=== PATIENT | male | born 1960 | race Two or more races ===

== ENCOUNTER 2017-03-16 13:16 | Emergency (ER) | payer MEDICAID ==
[~2017-03-16] VITALS: Ht 167.6 cm; Wt 90.7 kg
[~2017-03-16 13:16] MED LIST: AMOX500C2 PO; ASPI81CH43 PO; METR500T14 PO; OMEP20CA74 PO
[2017-03-16 14:05] LABS: Basophils # (auto) 0 uL; Basophils % (auto) 0.7 % (0.0-2.0); CONDITION Y; Eosinophils # (auto) 0.4 uL; Eosinophils % (auto) 7.3 % (0.0-7.0); Hematocrit 43.4 % (41.0-53.0); Lymphocytes # (auto) 1.2 uL; Mean Corpuscular Hemoglobin 32.6 pg (28.0-32.0); Mean Corpuscular Hgb Conc. 34.6 g/dL (32.0-36.0); Mean Corpuscular Volume 94.3 fL (80.0-100.0); Mean Platelet Volume 8.7 fL (7.4-10.4); Monocytes # (auto) 0.4 uL; Neutrophils # (auto) 3.8 uL; Platelet Count (auto) 235 10^3/uL (140-450); Red Cell Distribution Width 13.1 % (11.6-16.0); White Blood Cell 5.8 10^3/uL (4.4-10.8)
[2017-03-16 14:21] LABS: Albumin 3.6 g/dL (3.4-5.0); Anion Gap 8 (5-15); Aspartate Aminotransferase 16 U/L (15-37); BUN/Creatinine Ratio 17.4; Blood Urea Nitrogen 16 mg/dL (7-18); Calcium 8.3 mg/dL (8.5-10.1); Carbon Dioxide 26 mmol/L (21-32); Chloride 110 mmol/L (98-107); GFR African American 109 mL/min; GFR Non-African American 90 mL/min; Glucose 95 mg/dL (74-106); Magnesium 2.6 mg/dL (1.6-2.6); Potassium 3.9 mmol/L (3.5-5.1); Sodium 144 mmol/L (136-145)
[2017-03-16 14:26] LABS: Alkaline Phosphatase 59 U/L (45-117); Bilirubin, Total 0.4 mg/dL (0.2-1.0); Total Protein 6.9 g/dL (6.4-8.2)
[2017-03-16] MEDS ORDERED: SODIUM CHLORIDE 0.9% 1,000 ML IV ONE (15:56)
[2017-03-16] MEDS ORDERED: METOCLOPRAMIDE HCL 5MG/ml INJ 2ml VIAL IV ONE (16:00)
[2017-03-16] MEDS ORDERED: PANTOPRAZOLE 40 MG TAB PO ONE (16:00)
[2017-03-16 17:01] VITALS: BP 134/83
== END 2017-03-16 18:10 | disposition home or self-care (01) ==
LOC: ER 13:16
DX: R07.89 Other chest pain (principal); K21.9 Gastro-esophageal reflux disease without esophagitis; I10 Essential (primary) hypertension; E78.5 Hyperlipidemia, unspecified; Z90.49 Acquired absence of other specified parts of digestive tract; Z79.82 Long term (current) use of aspirin
CPT/HCPCS: 36415; 71010; 80053; 83735; 84443; 84484; 85025; 93005; 94761; 96361; 96374; 99285; J2765; J7030

== ENCOUNTER 2023-09-27 21:39 | Inpatient (IN) | payer OTHER, MEDICAID ==
[~2023-09-27] VITALS: Ht 172.7 cm; Wt 99.4 kg
[~2023-09-27 21:39] MED LIST changes: -AMOX500C2 PO; +CALC500C3 PO; -METR500T14 PO; -OMEP20CA74 PO; +PANT40TA2 PO
[2023-09-27 21:58] LABS: Basophils # (auto) 0.1 10 ^3/uL (0-0.2); Basophils % (auto) 1.1 % (0.0-2.0); Eosinophils # (auto) 0.4 10 ^3/uL (0-0.8); Eosinophils % (auto) 4.9 % (0.0-7.0); Hemoglobin 15.8 g/dL (13.5-17.5); Lymphocytes # (auto) 2.5 10 ^3/uL (0.4-5.4); Lymphocytes % (auto) 31.7 % (10.0-50.0); Mean Corpuscular Hemoglobin 31.6 pg (28.0-32.0); Mean Corpuscular Hgb Conc. 33.7 g/dL (32.0-36.0); Mean Corpuscular Volume 93.7 fL (80.0-100.0); Monocytes # (auto) 0.7 10 ^3/uL (0-1.3); Monocytes % (auto) 8.3 % (0.0-12.0); Neutrophils # (auto) 4.3 10 ^3/uL (1.6-8.6); Nucleated Red Blood Cells % 0.2 %; Red Blood Cells 5.01 10^6/uL (4.5-5.90); Red Cell Distribution Width 12.8 % (11.8-14.3); White Blood Cell 7.9 10^3/uL (4.4-10.8)
[2023-09-27 22:14] LABS: Alanine Aminotransferase 32 U/L (7-40); Albumin 4.5 g/dL (3.2-4.8); Alkaline Phosphatase 74 U/L (46-116); Anion Gap 5 (5-15); Aspartate Aminotransferase 21 U/L (13-40); BUN/Creatinine Ratio 8.6 (10.0-20.0); Blood Urea Nitrogen 8 mg/dL (9-23); Calcium 9.3 mg/dL (8.7-10.4); Carbon Dioxide 31 mmol/L (20-30); Chloride 106 mmol/L (98-107); Glucose 101 mg/dL (74-106); Magnesium 2.2 mg/dL (1.6-2.6); Potassium 4.2 mmol/L (3.5-5.1); Sodium 142 mmol/L (136-145)
[2023-09-27 22:15] LABS: Bilirubin, Total 0.5 mg/dL (0.2-1.0); Total Protein 7.7 g/dL (5.7-8.2)
[2023-09-27 22:38] LABS: Urine Bacteria NONE SEEN /hpf (None Seen); Urine Blood Negative /uL (Negative); Urine Clarity Clear (Clear); Urine Color Yellow (Yellow); Urine Protein, UAD Negative (Negative); Urine Specific Gravity 1.013 (1.001-1.035); Urine Urobilinogen Normal (Negative); Urine WBC <1 /hpf (0 - 3); Urine pH 5.5 (5.0-8.0)
[2023-09-27 23:15] LABS: INR 0.97 (0.9-1.15); Partial Thromboplastin Time 29.2 SEC (24.5-34.5); Prothrombin Time 10.2 sec (9.3-11.8)
[2023-09-28] MEDS: ONDANSETRON HCL 4 MG/2 ML VIAL IV ONE (03:21)
[2023-09-28] MEDS: MORPHINE SULFATE 4 MG/ML SYR/VIAL IV ONE (03:21)
[2023-09-28] MEDS ORDERED: DOCUSATE SOD 100 MG CAP PO PRN (03:30)
[2023-09-28] MEDS ORDERED: ACETAMINOPHEN 325 MG TAB PO PRN (03:30)
[2023-09-28 05:45] LABS: Basophils # (auto) 0 10 ^3/uL (0-0.2); Basophils % (auto) 0.7 % (0.0-2.0); Eosinophils # (auto) 0.1 10 ^3/uL (0-0.8); Eosinophils % (auto) 1.5 % (0.0-7.0); Hemoglobin 15.5 g/dL (13.5-17.5); Lymphocytes # (auto) 1.2 10 ^3/uL (0.4-5.4); Lymphocytes % (auto) 20.4 % (10.0-50.0); Mean Corpuscular Hemoglobin 31.5 pg (28.0-32.0); Mean Corpuscular Hgb Conc. 33.7 g/dL (32.0-36.0); Mean Corpuscular Volume 93.3 fL (80.0-100.0); Monocytes # (auto) 0.3 10 ^3/uL (0-1.3); Monocytes % (auto) 5.2 % (0.0-12.0); Neutrophils # (auto) 4.3 10 ^3/uL (1.6-8.6); Neutrophils % (auto) 72.2 % (37.0-80.0); Nucleated Red Blood Cells % 0.3 %; Red Blood Cells 4.93 10^6/uL (4.5-5.90); Red Cell Distribution Width 13.2 % (11.8-14.3); White Blood Cell 5.9 10^3/uL (4.4-10.8)
[2023-09-28 05:54] LABS: Alanine Aminotransferase 32 U/L (7-40); Alkaline Phosphatase 69 U/L (46-116); Anion Gap 4 (5-15); BUN/Creatinine Ratio 9.9 (10.0-20.0); Blood Urea Nitrogen 9 mg/dL (9-23); Calcium 9.4 mg/dL (8.7-10.4); Carbon Dioxide 29 mmol/L (20-30); Chloride 108 mmol/L (98-107); Glucose 112 mg/dL (74-106); Potassium 5.2 mmol/L (3.5-5.1); Sodium 141 mmol/L (136-145)
[2023-09-28 05:55] LABS: Albumin 4.4 g/dL (3.2-4.8)
[2023-09-28 05:56] LABS: Aspartate Aminotransferase 20 U/L (13-40); Bilirubin, Total 0.7 mg/dL (0.2-1.0); Total Protein 7.1 g/dL (5.7-8.2)
[2023-09-28] MEDS: SODIUM CHLOR 0.9% PF (SALINE LOCK) 10ML VIAL/SYR IV SCH (06:17)
[2023-09-28 08:00] VITALS: PULSE 73; RESP 14; O2SAT 95
[2023-09-28] MEDS: NITROGLYCERIN 0.4 MG SL TAB SL PRN (08:04)
[2023-09-28] MEDS: MORPHINE SULFATE INJ 2 MG/ml SYRG IV PRN (09:28)
[2023-09-28] MEDS: ONDANSETRON HCL 4 MG/2 ML VIAL IV PRN (09:29)
[2023-09-28] MEDS: ASPirin 81 mg TAB PO SCH (10:22)
[2023-09-28] MEDS: FAMOTIDINE (10MG/ML) 2ML VL IV SCH (10:22)
[2023-09-28 12:20] LABS: Urine Bacteria NONE SEEN /hpf (None Seen); Urine Blood Negative /uL (Negative); Urine Clarity Clear (Clear); Urine Color Colorless (Yellow); Urine Protein, UAD Negative (Negative); Urine Specific Gravity 1.016 (1.001-1.035); Urine Urobilinogen Normal (Negative); Urine WBC <1 /hpf (0 - 3)
[2023-09-28] MEDS: ENOXAPARIN SOD 100 MG/1 ML SYRINGE SC ONE (12:59)
[2023-09-28] MEDS: NITROGLYCERIN 0.2MG/HR TOPICAL PATCH TD ONE (12:59)
[2023-09-28] MEDS: SODIUM CHLORIDE 0.9% 1,000 ML IV SCH (12:59)
[2023-09-28 13:52] LABS: Amphetamine Screen, Urine Neg (NEGATIVE); Barbiturate Scree,Urine Neg (NEGATIVE); Benzodiazephine Screen, Urine Neg (NEGATIVE); Cannabinoid Screen, Urine Neg (NEGATIVE); Cocaine Screen, Urine Neg (NEGATIVE); Opiate Scree,Urine Pos (NEGATIVE); Phencyclidine Screen, Urine Neg (NEGATIVE)
[2023-09-28 14:29] LABS: Triglycerides 105 mg/dL (< 150)
[2023-09-28 14:30] LABS: LDL Cholesterol 159 mg/dL (< 100)
[2023-09-28 14:31] LABS: Cholesterol 219 mg/dL (< 200); HDL Cholesterol 52 mg/dL (40-59)
[2023-09-28] MEDS: HYDROcodone-ACET 5/325MG TAB PO ONE (15:17)
[2023-09-28 20:00] VITALS: PULSE 84
[2023-09-28] MEDS: HYDROcodone-ACET 5/325MG TAB PO PRN (21:29)
[2023-09-28] MEDS: ATORVASTATIN 20 MG TAB PO SCH (21:29)
[2023-09-28] MEDS: ENOXAPARIN SOD 100 MG/1 ML SYRINGE SC SCH (21:30)
[2023-09-28 22:56] VITALS: BP 116/64; PULSE 71; RESP 18; TEMP 97.5; O2SAT 98
[2023-09-29] VITALS (9 sets, daily range): BP systolic 96–137; BP diastolic 58–91; PULSE 61–86; RESP 15–20; TEMP 96.7–98.4; O2SAT 93–97
[2023-09-29 05:44] LABS: Basophils # (auto) 0 10 ^3/uL (0-0.2); Basophils % (auto) 0.6 % (0.0-2.0); Eosinophils # (auto) 0.2 10 ^3/uL (0-0.8); Eosinophils % (auto) 3.7 % (0.0-7.0); Hematocrit 41.4 % (41.0-53.0); Hemoglobin 14.3 g/dL (13.5-17.5); Lymphocytes # (auto) 1.9 10 ^3/uL (0.4-5.4); Lymphocytes % (auto) 29.1 % (10.0-50.0); Mean Corpuscular Hemoglobin 32.2 pg (28.0-32.0); Mean Corpuscular Hgb Conc. 34.5 g/dL (32.0-36.0); Mean Corpuscular Volume 93.3 fL (80.0-100.0); Monocytes # (auto) 0.6 10 ^3/uL (0-1.3); Monocytes % (auto) 9.3 % (0.0-12.0); Neutrophils # (auto) 3.8 10 ^3/uL (1.6-8.6); Neutrophils % (auto) 57.3 % (37.0-80.0); Red Blood Cells 4.44 10^6/uL (4.5-5.90); White Blood Cell 6.6 10^3/uL (4.4-10.8)
[2023-09-29 06:06] LABS: Alanine Aminotransferase 44 U/L (7-40); Albumin 3.8 g/dL (3.2-4.8); Alkaline Phosphatase 58 U/L (46-116); Anion Gap 3 (5-15); Aspartate Aminotransferase 28 U/L (13-40); BUN/Creatinine Ratio 10.6 (10.0-20.0); Bilirubin, Total 0.9 mg/dL (0.2-1.0); Blood Urea Nitrogen 9 mg/dL (9-23); Calcium 8.8 mg/dL (8.5-10.1); Carbon Dioxide 31 mmol/L (20-30); Chloride 105 mmol/L (98-107); Glucose 96 mg/dL (74-106); Sodium 139 mmol/L (136-145); Total Protein 6.2 g/dL (5.7-8.2)
[2023-09-29] MEDS: PANTOPRAZOLE 40 MG TAB PO SCH (09:47)
[2023-09-29] MEDS: NITROGLYCERIN 0.2MG/HR TOPICAL PATCH TD SCH (10:00)
[2023-09-29] MEDS: ADENOSINE 82 MG in GIVE UN-DILUTED 0 ML IV STA (10:50)
[2023-09-29] MEDS: ATORVASTATIN 20 MG TAB PO SCH (21:03)
[2023-09-30] MEDS ORDERED: OFL50TS (04:01)
[2023-09-30] MEDS ORDERED: ATOR20TA50 PO (04:01)
[2023-09-30] MEDS ORDERED: DEXT1SYP6 PO (04:01)
[2023-09-30 05:09] VITALS: BP 128/74; PULSE 74; RESP 18; TEMP 97.9; O2SAT 93
[2023-09-30 08:30] VITALS: PULSE 68; PULSE 77; RESP 16
[2023-09-30 09:33] VITALS: BP 123/60; PULSE 67; RESP 18; TEMP 98.6; O2SAT 95
[2023-09-30] MEDS ORDERED: ATOR80TA PO (12:37)
[2023-09-30] MEDS ORDERED: ASPI1TAB20 PO (12:37)
== END 2023-09-30 13:48 | disposition home or self-care (01) | DRG 282 ==
LOC: ER 21:39 → TELE-WESTW 09-28 03:29 → TELE 09-28 03:29 → ER 09-28 03:29 → TELE-WESTW 09-28 19:42
PROVIDERS: ADMIT Nurse Practitioner Family; ATTEND Family Medicine
DX: I21.4 Non-ST elevation (NSTEMI) myocardial infarction (principal); E78.5 Hyperlipidemia, unspecified; E66.9 Obesity, unspecified; I45.10 Unspecified right bundle-branch block; K21.9 Gastro-esophageal reflux disease without esophagitis; M41.9 Scoliosis, unspecified; E87.5 Hyperkalemia; E78.00 Pure hypercholesterolemia, unspecified; Z79.82 Long term (current) use of aspirin; Z79.899 Other long term (current) drug therapy; Z90.49 Acquired absence of other specified parts of digestive tract; Z68.33 Body mass index [BMI] 33.0-33.9, adult; M19.90 Unspecified osteoarthritis, unspecified site
CPT/HCPCS: 36415; 78452; 80053; 80061; 80307; 81001; 83036; 83735; 83880; 84443; 84484; 85025; 85379; 85610; 85730; 93005; 93017; 93306; 96374; 96375; 96376; G0378; J0153; J2405; J3490

== ENCOUNTER → 2025-04-01 | Day surgery (SDC) | payer OTHER, MEDICAID ==
[2025-03-28 14:02] LABS: Urine Protein, UAD Negative (Negative)
[2025-03-28 14:03] LABS: Hematocrit 50.7 % (41.0-53.0); Hemoglobin 17.6 g/dL (13.5-17.5); Mean Corpuscular Hemoglobin 32.2 pg (28.0-32.0); Mean Corpuscular Volume 93.0 fL (80.0-100.0); Nucleated Red Blood Cells % 0.2 %
[2025-03-28 14:17] LABS: INR 0.98 (0.9-1.15); Partial Thromboplastin Time 28.9 SEC (24.5-34.5); Prothrombin Time 10.4 sec (9.3-11.8)
[2025-03-28 15:25] LABS: Alanine Aminotransferase 27 U/L (7-40); Alkaline Phosphatase 69 U/L (46-116); Anion Gap 8 (5-15); BUN/Creatinine Ratio 10.2 (10.0-20.0); Bilirubin, Total 0.6 mg/dL (0.2-1.0); Blood Urea Nitrogen 9 mg/dL (9-23); Calcium 9.7 mg/dL (8.7-10.4); Chloride 99 mmol/L (98-107); Glucose 84 mg/dL (74-106); Potassium 4.0 mmol/L (3.5-5.1); Sodium 140 mmol/L (136-145); Total Protein 7.6 g/dL (5.7-8.2)
[2025-03-28 15:27] LABS: Albumin 4.9 g/dL (3.2-4.8); Carbon Dioxide 33 mmol/L (20-31)
[~2025-04-01] VITALS: Ht 160 cm; Wt 98.9 kg
[~2025-04-01] MED LIST changes: -ASPI81CH43 PO; -CALC500C3 PO; +GLYCOPYRROLATE 0.2 MG/ML 1ML VIAL ONE; +KETAMINE 50mg/ML 1ml syringe IV ONE; +LIDOCAINE 2% (LOCAL ANESTH.) PF 5ml SDV ONE; +MIDAZOLAM HCL 2MG/2ML 2ml VIAL (1mg/ml) ONE; +ONDANSETRON HCL 4 MG/2 ML VIAL ONE; -PANT40TA2 PO; +PROPOFOL 10 MG/ML 20 ML IV ONE; +fentaNYL CITRATE 100 MCG/2 ML VL ONE
[2025-04-01 11:19] VITALS: PULSE 100; RESP 19; TEMP 97.7
[2025-04-01 11:45] VITALS: BP 124/86; PULSE 98; RESP 14; O2SAT 95
--- NOTE | 2025-04-01 12:19 | DVHOP2 ---
Operative Report DATE OF OPERATION: 04/01/25 PROCEDURE: Upper Endoscopy with biopsy. PREOPERATIVE INDICATION: The patient is a 64 -year-old male undergoing endoscopy for heme-positive stools and GERD POSTOPERATIVE DIAGNOSES: 1. 2 cm sliding-type hiatal hernia with slightly irregular squamocolumnar junction and grade a erosive esophagitis 2. Mild gastritis involving the antrum and body of the stomach with some flecks of bleeding PROCEDURE PERFORMED BY: Kris Ray GI NURSE: Mary SCOPE: Olympus videoendoscope. ASA CLASS: 3 PREOPERATIVE MEDICATIONS: Dr. Tyrese Lyon PROCEDURE IN DETAIL: After obtaining an informed consent, the patient was placed on left lateral decubitus position. The patient was then sedated with the above medications. A bite block was placed between his teeth. The endoscope was then passed through the oropharynx, into the esophagus, and through the stomach and pylorus up to the second and third part of the duodenum. The endoscope was then withdrawn. The 2nd and 3rd part of the duodenum and the duodenal bulb were normal. Duodenal biopsies were obtained The pre-pyloric area antrum and body of the stomach showed mild gastritis with some flecks of old blood. Gastric biopsies were obtained On retroflexion the fundus cardia and angularis were normal. The endoscope was then withdrawn into distal esophagus Patient had a 2 cm sliding-type hiatal hernia with irregular squamocolumnar junction and grade a erosive esophagitis at the GE junction from which biopsies were obtained The remaining distal and proximal esophagus and oropharynx were unremarkable The patient tolerated the procedure well without difficulty. COMPLICATIONS : None SPECIMENS: Duodenal biopsies Gastric biopsies GE junction biopsies DISPOSITION: Stable D/C to home PLAN: 1. Await for biopsy result 2. Will place pt on Protonix 40 mg p.o. daily 3. Resume GI soft diet advance as tolerated 4. Avoid aspirin and NSAIDs , smoking and alcohol 5. Outpatient follow up with me in 4-6 weeks to review results and discuss further management KRIS RAY MD Apr 01, 2025 12:19
--- NOTE | 2025-04-01 12:23 | DVHOP2 ---
Operative Report DATE OF OPERATION: 04/01/25 PROCEDURE: Colonoscopy with hot snare polypectomy. PREOPERATIVE INDICATION: The patient is a 64 -year-old male undergoing colonoscopy for Hemoccult-positive stools POSTOPERATIVE DIAGNOSES: 1. Patient had a 1-1.5 cm rectal polyp that was seen and removed via hot snare polypectomy and the specimens were retrieved 2. There was a 3 mm benign-appearing sigmoid polyp that was seen and removed by cold biopsy forceps 3. There were two 1-2 mm benign-appearing descending colon polyps that were seen and removed by cold biopsy forceps 4. 1+ internal hemorrhoids otherwise normal examination up to the cecum and terminal ileum PROCEDURE PERFORMED BY: Kris Ray M.D. SCOPE: Olympus videocolonoscope. ASA CLASS: 3 PREOPERATIVE MEDICATIONS: Dr. Tyrese Lyon PROCEDURE IN DETAIL: After obtaining an informed consent, the patient was placed on left lateral decubitus position. He was then sedated with the above medications. A rectal examination was performed that was normal. The colonoscope was then passed through the anus into the rectosigmoid and through the descending, transverse, and ascending colon up to the cecum with visualization of the appendiceal orifice, base of the cecum and the ileocecal valve. The colonoscope was then withdrawn. The distal 3-5 cm of the terminal ileum were normal No masses or colitis were seen. There was no clear-cut diverticular disease. Patient did have to less than 5 mm benign-appearing descending colon polyps that were seen and removed by cold biopsy forceps There was a 2-3 mm benign-appearing sigmoid polyp that was seen and removed by cold biopsy forceps On retroflexion patient had a 1-1.5 cm polyp seen for 5 cm above the anal verge. This was removed by hot snare polypectomy and the specimens were retrieved Patient had 1+ internal hemorrhoids that were slightly engorged. The patient tolerated the procedure well without difficulty. WITHDRAWAL TIME: 12 minutes QUALITY OF THE PREP: [place]in Bowel Prep score: 9. COMPLICATIONS : None SPECIMENS: Descending colon polyps x2 Sigmoid polyp x1 Rectal polyp x1 DISPOSITION: Stable D/C to home PLAN: 1. Repeat colonoscopy base on biopsy result likely in 3-5 years 2. Resume GI soft diet advance as tolerated 3. Local anorectal hemorrhoidal care 4. Avoid aspirin NSAIDs blood thinners for five days 5. Outpatient follow up with me in 4-6 weeks to review results and discuss further management KRIS RAY MD Apr 01, 2025 12:23
== END | disposition home or self-care (01) ==
LOC: GI 08:14
PROVIDERS: ATTEND Internal Medicine Gastroenterology
DX: R19.5 Other fecal abnormalities (principal); K21.00 Gastro-esophageal reflux disease with esophagitis, without bleeding; D12.8 Benign neoplasm of rectum; D12.4 Benign neoplasm of descending colon; K64.0 First degree hemorrhoids; K44.9 Diaphragmatic hernia without obstruction or gangrene; Z86.0100 Personal history of colon polyps, unspecified; K29.50 Unspecified chronic gastritis without bleeding; I25.10 Atherosclerotic heart disease of native coronary artery without angina pectoris; Z90.49 Acquired absence of other specified parts of digestive tract
CPT/HCPCS: 36415; 43239; 45380; 45385; 80053; 81001; 85025; 85610; 85730; 88305; 88342; J2003; J2250; J2405; J2704; J3010; J7030

== ENCOUNTER 2025-07-20 16:38 | Inpatient (IN) | payer MEDICARE, MEDICAID ==
[~2025-07-20] VITALS: Ht 167.6 cm; Wt 98.5 kg
--- NOTE | 2025-07-20 16:53 | ECG ---
[facility] Test Date: 2025-07-20 Test Time: 16:43:44 Pat Name: GONSALO LORA Department: ER Room: 0288T Gender: M Firearms Instructor: SANGITA : 1960 Requested By: VANESSA BRENNER* Order Number: [id number] Reading MD: Helio Serrano Measurements Intervals [place] Rate: 95 P: 73 VA: 156 QRS: 62 QRSD: 141 T: 18 QT: 373 QTc: 469 Interpretive Statements Sinus rhythm Ventricular premature complex Right bundle branch block Electronically Signed On 07-21-2025 17:25:56 PST by Helio Serrano Please click the below link to view image of tracing.
--- NOTE | 2025-07-20 17:01 | ED.PDOC ---
HPI Comments HPI: Past Medical history: HTN, Thyroid, High Lipids Past Surgical history: Cholecystectomy, Hernia Repair Social History: Denies smoking, ETOH, and drug use. Allergies: NKDA NATASHA CP/SOB WITH EXERTION OR THREE DAYS. HPI: Poor Historian. 65-year-old male presents to emergency depart for evaluation of midsternal chest pain nonradiating for the last three days with the associated exertional shortness of breath. Denies any other acute symptoms. REVIEW OF SYSTEMS: CONSTITUTIONAL: Denies acute: fever, diaphoresis, chills, generalized weakness. HEAD: Denies acute: headache, photophobia Eyes: Denies acute: Double vision, vision loss, eye pain, eye discharge. EARS: Denies acute: tinnitus, hearing loss, ear discharge, ear pain, THROAT: Denies acute: sore throat, swelling, difficulty swallowing , pain with swallowing, change in voice. NECK: Denies acute: neck pain, neck swelling, stiff neck. HEART: Denies acute : palpitations, LUNGS: Denies acute: wheezing, cough, hemoptysis ABDOMEN: Denies acute: abdominal pain, Nausea, Vomiting, diarrhea, melena , hematemesis, hematochezia SKIN: Denies acute: rash, redness, lesions, itchiness. EXTREMITIES: Denies acute: calf pain, numbness, tingling, weakness, denies pain in extremity. Denies acute: Low back pain. Neuro: Denies acute: focal neurological deficit, motor or sensory focal neurological deficit, tremors, seizure like activity, confusion, dizziness, change in mental status, loss of bowel or bladder function, cauda equina like symptoms. : Denies acute: dysuria, hematuria, flank pain, increase in urinary frequency. PSYCH: Denies acute: hallucination, suicidal ideation, homicidal ideation. PHYSICAL EXAM: General: -----mild---acute distress, awake and alert. Head: normocephalic, atraumatic. No raccoon's eyes, no harding sign. Neck: supple, trachea is midline, no swelling. Throat: Normal phonation. Eyes:, no erythema, no purulent discharge, no proptosis, no icterus. Heart: regular rate, regular rhythm, no significant murmur appreciated. Lungs: no apparent respiratory distress, Able to speak in full sentences. No wheezing, no rhonchi, no crackles. No stridors Clear to auscultation bilaterally. Abdomen: non tender to palpation, non distended, soft, no guarding, no rebound, + bowel sounds. Neuro: Awake, Alert, oriented to name, self, situation, follows commands GCS=15. Speech is normal. Skin: no petechia, no purpura, no cyanosis, non-pale, not jaundice. Lower extremities: --no - Pitting edema no deformity, no focal swelling, no calf TTP. Makes eye contact. moves all four extremities. Face: no apparent facial droop. Ambulating in the ED independently. ED COURSE: DISCLAIMER: This medical document was created using an electronic medical record system with voice recognition software and computerized dictation system. Although this document has been carefully reviewed, there might still be some phonetic and typographical errors. Occasional wrong-word or "sound-alike" substitutions may have occurred due to the inherent limitations of voice recognition software. These areas are purely typographical due to imperfections of the software programs and do not reflect any compromise in the patient's medical care. Please read the chart carefully and recognize, using context, where these substitutions have occurred. Chief Complaint: Chest Pain Time Seen by MD: 17:00 Primary Care Provider: AMY Reviewed Notes: Nurses Notes, Medications, Allergies Allergies: Coded Allergies: NO KNOWN ALLERGIES (Unverified , 03/18/14) Information Source: Patient Mode of Arrival: Ambulatory EKG EKG : Pulse Rate (adult): 95 Richards: Normal Cardiac Rhythm: NSR Block: None Hypertrophy: None ST: Normal Was a procedure done? Was a procedure done?: No X-Ray, Labs, Meds, VS Vital Signs Date Time Temp Pulse Resp B/P (MAP) Pulse Ox O2 Delivery O2 Flow Rate FiO2 07/20/25 18:05 98.4 90 14 129/86 (100) 93 98.4 07/20/25 17:01 95 07/20/25 16:43 95 07/20/25 16:39 98.0 106 18 155/88 95 98.0 Lab Test 07/20/25 17:08 Range/Units White Blood Count 5.5 4.4-10.8 10^3/uL Red Blood Count 4.78 4.5-5.90 10^6/uL Hemoglobin 15.6 13.5-17.5 g/dL Hematocrit 44.7 41.0-53.0 % Mean Corpuscular Volume 93.4 80.0-100.0 fL Mean Corpuscular Hemoglobin 32.7 H 28.0-32.0 pg Mean Corpuscular Hemoglobin Concent 35.0 32.0-36.0 g/dL Red Cell Distribution Width 13.4 11.8-14.3 % Platelet Count 258 140-450 10^3/uL Mean Platelet Volume 7.8 6.9-10.8 fL Neutrophils (%) (Auto) 59.6 37.0-80.0 % Lymphocytes (%) (Auto) 28.1 10.0-50.0 % Monocytes (%) (Auto) 6.6 0.0-12.0 % Eosinophils (%) (Auto) 4.7 0.0-7.0 % Basophils (%) (Auto) 1.0 0.0-2.0 % Neutrophils # (Auto) 3.3 1.6-8.6 10 ^3/uL Lymphocytes # (Auto) 1.6 0.4-5.4 10 ^3/uL Monocytes # (Auto) 0.4 0-1.3 10 ^3/uL Eosinophils # (Auto) 0.3 0-0.8 10 ^3/uL Basophils # (Auto) 0.1 0-0.2 10 ^3/uL Nucleated Red Blood Cells 0.1 % D-Dimer, Quantitative 0.46 0.0-0.49 mg/L FEU Sodium Level 145 136-145 mmol/L Potassium Level 3.9 3.5-5.1 mmol/L Chloride Level 105 98-107 mmol/L Carbon Dioxide Level 31 20-31 mmol/L Anion Gap 9 5-15 Blood Urea Nitrogen 8 L 9-23 mg/dL Creatinine 0.87 0.700-1.30 mg/dL Glomerular Filtration Rate Calc 95 >90 mL/min BUN/Creatinine Ratio 9.2 L 10.0-20.0 Serum Glucose 130 H 74-106 mg/dL Calcium Level 9.3 8.7-10.4 mg/dL Total Bilirubin 0.5 0.2-1.0 mg/dL Aspartate Amino Transferase (AST) 24 13-40 U/L Alanine Aminotransferase (ALT) 34 7-40 U/L Alkaline Phosphatase 65 46-116 U/L Troponin I High Sensitivity 72 *H </=54 ng/L B-Type Natriuretic Peptide 25.80 0-100 pg/mL Total Protein 6.9 5.7-8.2 g/dL Albumin 4.2 3.2-4.8 g/dL Lipase 53 12-53 U/L Time of 1ST Reevaluation: 17:30 Reevaluation 1ST: Unchanged Patient Education/Counseling: Diagnosis, Treatment Family Education/Counseling: No Family Present SEPSIS Sepsis Screen Date sepsis recognized/suspect: Jul 20, 2025 Time Sepsis recognized/suspect: 1640 Recent Procedure: No On Antibiotic Therapy: No Respiratory Rate >20: No Heart Rate >90: Yes Temp<36 C (96.8 F) or >38.3 C: No SBP <90 or MAP <65 mmHG: No New Acute Mental Status Change: No Is the patient on CPAP, BIPAP,: No Physician Orders Troponin-I Hs (07/20/25 17:41) Troponin-I Hs (07/20/25 19:41) Chest Portable (07/20/25 17:29) Vital Signs Date Time Temp Pulse Resp B/P (MAP) Pulse Ox O2 Delivery O2 Flow Rate FiO2 07/20/25 18:05 98.4 90 14 129/86 (100) 93 98.4 07/20/25 17:01 95 07/20/25 16:43 95 07/20/25 16:39 98.0 106 18 155/88 95 98.0 Laboratory Tests Test 07/20/25 17:08 White Blood Count 5.5 10^3/uL (4.4-10.8) Departure 1 Departure Time of Disposition: 17:34 Impression: Primary Impression: Chest pain Additional Impressions: Shortness of breath Elevated troponin Disposition: ADMITTED INPATIENT Admit to: Tele Condition: Guarded Discharged With: Self Critical Care Note Critical Care Time?: No I personally scribed for LAY RODRIGUEZ DO ([email or web address]) on 07/20/25 at 17:01. Electronically submitted by Brayan Mendez ([email or web address]). LAY RODRIGUEZ DO Jul 20, 2025 17:01
[2025-07-20 17:42] LABS: Hematocrit 44.7 % (41.0-53.0); Hemoglobin 15.6 g/dL (13.5-17.5); Mean Corpuscular Hemoglobin 32.7 pg (28.0-32.0); Mean Corpuscular Volume 93.4 fL (80.0-100.0); Nucleated Red Blood Cells % 0.1 %
[2025-07-20 17:57] LABS: Alanine Aminotransferase 34 U/L (7-40); Albumin 4.2 g/dL (3.2-4.8); Alkaline Phosphatase 65 U/L (46-116); Anion Gap 9 (5-15); BUN/Creatinine Ratio 9.2 (10.0-20.0); Calcium 9.3 mg/dL (8.7-10.4); Chloride 105 mmol/L (98-107); Potassium 3.9 mmol/L (3.5-5.1); Total Protein 6.9 g/dL (5.7-8.2)
[2025-07-20 17:58] LABS: Bilirubin, Total 0.5 mg/dL (0.2-1.0); Blood Urea Nitrogen 8 mg/dL (9-23); Carbon Dioxide 31 mmol/L (20-31); Glucose 130 mg/dL (74-106); Sodium 145 mmol/L (136-145)
[2025-07-20] MEDS: ASPirin-EC 325mg tab PO ONE (18:20)
[2025-07-20] MEDS: NITROGLYCERIN 0.4 MG SL TAB SL ONE (18:21)
--- NOTE | 2025-07-20 19:06 | DVH ---
EXAM: XY CHEST PORTABLE HISTORY: cp/sob TECHNIQUE: 1 view of the chest COMPARISON: CT CT ANGIO CHEST CONTRAST on DOS: 09/28/23 FINDINGS/IMPRESSION: LUNGS: No pleural effusion, consolidation, or pneumothorax. MEDIASTINUM: Unremarkable. BONES: No acute osseous abnormality. OTHER: None.
[2025-07-20] MEDS ORDERED: MORPHINE SULFATE INJ 2 MG/ml SYRG IV PRN (20:00)
[2025-07-20] MEDS ORDERED: NITROGLYCERIN 0.4 MG SL TAB SL PRN (20:00)
[2025-07-20 20:32] VITALS: O2SAT 0
[2025-07-20] MEDS ORDERED: ONDANSETRON HCL 4 MG/2 ML VIAL IV PRN (21:45)
[2025-07-20] MEDS ORDERED: ACETAMINOPHEN 325 MG TAB PO PRN (21:45)
--- NOTE | 2025-07-20 21:45 | DVHHP2 ---
History of Present Illness Reason for Visit: Chest pain History of Present Illness 65-year-old male presents for evaluation of chest pain. Patient endorses a one- week history of intermittent substernal pressure-like chest pain with associated dizziness and occasional shortness for breath. No nausea or vomiting. He states the symptoms became more constant today so he presents for further evaluation. Past Medical History Dyslipidemia, thyroid, hypertension Past Surgical History Cholecystectomy, hernia repair Family History Noncontributory Smoke: No ALCOHOL: none Drugs: None Lives: with Family Review of Systems Review of Systems Review of systems are currently negative otherwise addressed in HPI. Allergies: Coded Allergies: NO KNOWN ALLERGIES (Unverified , 03/18/14) Medications Current Medications Medications Dose Ordered Sig/Boom Route Start Time Stop Time Status Last Admin Dose Admin Nitroglycerin 0.4 mg Q5MINP PRN SL 07/20/25 20:00 Morphine Sulfate 2 mg Q30M PRN IV 07/20/25 20:00 Exam Vital Signs Vital Signs Date Time Temp Pulse Resp B/P (MAP) Pulse Ox O2 Delivery O2 Flow Rate FiO2 07/20/25 20:32 0 Room Air* 0 21 07/20/25 18:21 129/86 07/20/25 18:13 94 07/20/25 18:05 98.4 14 98.4 Exam Gen: 65-year-old male in mild distress Skin: Warm, dry, normal color and texture, no rash. HEENT: Normocephalic atraumatic, mucous membranes moist and pink. Neck: Cervical and supraclavicular nodes normal without enlargement, trachea is midline, thyroid gland is normal without masses. Pulmonary: Clear to auscultation and percussion bilaterally. Cardiac: Regular rate and rhythm. No murmur Abdomen: Soft, nontender, nondistended, bowel sounds present all 4 quadrants, no guarding, no rigidity, no organomegaly. Extremities: No cyanosis, clubbing, no edema Neuro: Cranial nerves II through XII grossly intact, normal affect and speech, no focal motor deficits. Labs/Xrays ORDERING PHYSICIAN: LAY RODRIGUEZ DO PROCEDURE(s): CXRP - CHEST PORTABLE REASON: cp/sob ORDER NUMBER(s): [id number], ACCESSION NUMBER(s): [id number] EXAM: XY CHEST PORTABLE HISTORY: cp/sob TECHNIQUE: 1 view of the chest COMPARISON: CT CT ANGIO CHEST CONTRAST on DOS: 09/28/23 FINDINGS/IMPRESSION: LUNGS: No pleural effusion, consolidation, or pneumothorax. MEDIASTINUM: Unremarkable. BONES: No acute osseous abnormality. OTHER: None. Labs Test 07/20/25 20:34 07/20/25 17:08 Range/Units Troponin I High Sensitivity 76 *H </=54 ng/L White Blood Count 5.5 4.4-10.8 10^3/uL Red Blood Count 4.78 4.5-5.90 10^6/uL Hemoglobin 15.6 13.5-17.5 g/dL Hematocrit 44.7 41.0-53.0 % Mean Corpuscular Volume 93.4 80.0-100.0 fL Mean Corpuscular Hemoglobin 32.7 H 28.0-32.0 pg Mean Corpuscular Hemoglobin Concent 35.0 32.0-36.0 g/dL Red Cell Distribution Width 13.4 11.8-14.3 % Platelet Count 258 140-450 10^3/uL Mean Platelet Volume 7.8 6.9-10.8 fL Neutrophils (%) (Auto) 59.6 37.0-80.0 % Lymphocytes (%) (Auto) 28.1 10.0-50.0 % Monocytes (%) (Auto) 6.6 0.0-12.0 % Eosinophils (%) (Auto) 4.7 0.0-7.0 % Basophils (%) (Auto) 1.0 0.0-2.0 % Neutrophils # (Auto) 3.3 1.6-8.6 10 ^3/uL Lymphocytes # (Auto) 1.6 0.4-5.4 10 ^3/uL Monocytes # (Auto) 0.4 0-1.3 10 ^3/uL Eosinophils # (Auto) 0.3 0-0.8 10 ^3/uL Basophils # (Auto) 0.1 0-0.2 10 ^3/uL Nucleated Red Blood Cells 0.1 % D-Dimer, Quantitative 0.46 0.0-0.49 mg/L FEU Sodium Level 145 136-145 mmol/L Potassium Level 3.9 3.5-5.1 mmol/L Chloride Level 105 98-107 mmol/L Carbon Dioxide Level 31 20-31 mmol/L Anion Gap 9 5-15 Blood Urea Nitrogen 8 L 9-23 mg/dL Creatinine 0.87 0.700-1.30 mg/dL Glomerular Filtration Rate Calc 95 >90 mL/min BUN/Creatinine Ratio 9.2 L 10.0-20.0 Serum Glucose 130 H 74-106 mg/dL Calcium Level 9.3 8.7-10.4 mg/dL Total Bilirubin 0.5 0.2-1.0 mg/dL Aspartate Amino Transferase (AST) 24 13-40 U/L Alanine Aminotransferase (ALT) 34 7-40 U/L Alkaline Phosphatase 65 46-116 U/L B-Type Natriuretic Peptide 25.80 0-100 pg/mL Total Protein 6.9 5.7-8.2 g/dL Albumin 4.2 3.2-4.8 g/dL Lipase 53 12-53 U/L SEPSIS Sepsis Screen Date sepsis recognized/suspect: Jul 20, 2025 Time Sepsis recognized/suspect: 1640 Recent Procedure: No On Antibiotic Therapy: No Respiratory Rate >20: No Heart Rate >90: Yes Temp<36 C (96.8 F) or >38.3 C: No SBP <90 or MAP <65 mmHG: No New Acute Mental Status Change: No Is the patient on CPAP, BIPAP,: No Physician Orders Chest Portable (07/20/25 17:29) Admit (07/20/25 19:49) Nitroglycerin Sublingual (Ntrostat Subli (07/20/25 20:00) Morphine Sulfate Injection (07/20/25 20:00) Stat Ekg For Chest Pain (07/20/25 19:49) Notify Md Of Changes From Base (07/20/25 19:49) 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 (07/20/25 19:49) Emergency Dysrhythmia Protocol (07/20/25 19:49) Rhythm Strips Once Every Shift (07/20/25 19:49) Oxygen By Nasal Cannula (07/20/25 19:49) * Cardiology Consult (07/20/25 21:40) Atorvastatin (Lipitor) (07/20/25 22:00) Vital Signs Date Time Temp Pulse Resp B/P (MAP) Pulse Ox O2 Delivery O2 Flow Rate FiO2 07/20/25 20:32 0 Room Air* 0 21 07/20/25 18:21 129/86 07/20/25 18:13 94 07/20/25 18:05 98.4 90 14 129/86 (100) 93 98.4 07/20/25 17:01 95 07/20/25 16:43 95 07/20/25 16:39 98.0 106 18 155/88 95 98.0 Laboratory Tests Test 07/20/25 17:08 White Blood Count 5.5 10^3/uL (4.4-10.8) Medications Medications Dose Ordered Sig/Boom Route Start Time Stop Time Status Last Admin Dose Admin Aspirin 325 mg ONCE ONCE PO 07/20/25 17:00 07/20/25 17:01 DC 07/20/25 18:20 325 MG Nitroglycerin 0.4 mg ONCE ONCE SL 07/20/25 17:00 07/20/25 17:01 DC 07/20/25 18:21 0.4 MG Assessment/Plan Assessment/Plan Assessment Chest pain rule out ACS Hypertension Plan Admit the patient to telemetry to the hospitalist ACS protocol Cardiology consultation Resume home medications Continue treatment per orders Plan discussed with: Patient My Orders Orders - MANISHA HARRISON Procedure Category Date Status Time Admit ADMIT 07/20/25 Transmitted 19:49 Nitroglycerin PHA 07/20/25 In Process Sublingual (Ntrostat 20:00 Morphine Sulfate PHA 07/20/25 In Process Injection 20:00 Stat Ekg For Chest CHELSY 07/20/25 In Process Pain 19:49 Notify Of Changes [facility] 07/20/25 In Process From Base 19:49 Tractor Trailer Driver For CHELSY 07/20/25 In Process 24 Hours 19:49 Emergency Dysrhythmia CHELSY 07/20/25 In Process Protocol 19:49 Rhythm Strips Once CHELSY 07/20/25 In Process Every Shift 19:49 Oxygen By Nasal RT 07/20/25 Transmitted Cannula 19:49 * Cardiology Consult CONS 07/20/25 Verified 21:40 Atorvastatin (Lipitor) PHA 07/20/25 Verified 22:00 Date of Service: Jul 20, 2025 Billing Provider: MANISHA HARRISON Common Visit Codes: [id number] INP/OBS CARE (HIGH) MANISHA HARRISON Jul 20, 2025 21:45
[2025-07-20 22:00] VITALS: BP 140/75; PULSE 79; RESP 18; TEMP 97.7; O2SAT 96
[2025-07-20 22:14] LABS: Triglycerides 123 mg/dL (< 150)
[2025-07-20 22:16] LABS: Cholesterol 130 mg/dL (< 200); HDL Cholesterol 47 mg/dL (40-59)
[2025-07-20] MEDS: ATORVASTATIN 20 MG TAB PO SCH (22:16)
[2025-07-20] MEDS ORDERED: BENA10TA90 PO (23:19)
[2025-07-20] MEDS ORDERED: ATOR40TA52 PO (23:19)
[2025-07-20] MEDS ORDERED: LEVO75TA6 PO (23:19)
[2025-07-21] VITALS (9 sets, daily range): BP systolic 108–125; BP diastolic 56–77; PULSE 58–80; RESP 18; TEMP 97.8–98.2; O2SAT 94–95
[2025-07-21] MEDS: LEVOTHYROXINE SODIUM 25 MCG TAB PO SCH (05:15)
[2025-07-21 06:24] LABS: Chloride 105 mmol/L (98-107); Potassium 4.0 mmol/L (3.5-5.1); Sodium 144 mmol/L (136-145)
[2025-07-21 06:25] LABS: Anion Gap 9 (5-15); Calcium 8.9 mg/dL (8.7-10.4); Carbon Dioxide 30 mmol/L (20-31)
[2025-07-21 06:30] LABS: BUN/Creatinine Ratio 11.8 (10.0-20.0); Blood Urea Nitrogen 9 mg/dL (9-23); Glucose 89 mg/dL (74-106)
[2025-07-21] MEDS: BENAZEPRIL HCL 10 MG TAB PO SCH (09:38)
[2025-07-21] MEDS ORDERED: MAALOX PLUS or MAALOX 30 ML PO PRN (11:45)
[2025-07-21] MEDS: MAALOX PLUS or MAALOX 30 ML PO ONE (12:05)
[2025-07-21] MEDS: PANTOPRAZOLE 40 MG TAB PO ONE (12:05)
[2025-07-21] MEDS: GABAPENTIN 100 MG CAP PO ONE (12:05)
--- NOTE | 2025-07-21 12:17 | DVHINCON2 ---
Date Seen: Jul 21, 2025 Referring Physician TERESA Yoo Reason for Consultation Chest pain History of Present Illness Patient is a 65-year-old male presented to the hospital with a chief complaint of chest pain. Patient reports chest pain to be lower substernal/epigastric chest pain, comes on at rest and is worsened after eating food with the patient feeling bloated and starts to have the pain, no worsening on exertion. Patient has previous history of GERD underwent endoscopy in March 2025 which showed hiatal hernia with a grade a erosive esophagitis as well as mild gastritis. Twelve lead EKG showed sinus rhythm with a right bundle branch block and PVC. Vitals has been stable. Patient takes benazepril for hypertension at home Past Medical History GERD, hypothyroidism, hyperlipidemia, hypertension Past Surgical History Cholecystectomy, hernia repair Family History: Cancer G8 MOTHER, , Age: 82 Family History No significant family history of [place], sudden cardiac , heart failure Social History Denies smoking, alcohol, drug use Allergies: Coded Allergies: NO KNOWN ALLERGIES (Unverified , 03/18/14) Home Meds Reported Medications Atorvastatin Calcium (ATORVASTATIN CALCIUM) 40 Mg Tab, 1 TAB PO DAILY 07/20/25 Levothyroxine Sodium (Levothyroxine Sodium) 75 Mcg Tab, 1 TAB PO DAILY 07/20/25 Benazepril Hcl (Benazepril Hcl) 10 Mg Tab, 1 TAB PO DAILY 07/20/25 Current Medications Current Medications Medications (Trade) Dose Ordered Sig/Boom Route PRN Reason Start Time Stop Time Status Last Admin Nitroglycerin (Ntrostat Sublingual) 0.4 mg Q5MINP PRN SL FOR CHEST PAIN 07/20/25 20:00 07/21/25 09:10 DC Morphine Sulfate 2 mg Q30M PRN IV FOR CHEST PAIN 07/20/25 20:00 07/21/25 09:10 DC Atorvastatin Calcium (Lipitor) 20 mg HS PO 07/20/25 22:00 07/20/25 22:16 Levothyroxine Sodium (Synthroid Tablet) 75 mcg QAM@0600 PO 07/21/25 06:00 07/21/25 05:15 Benazepril HCl (Lotensin Tablet) 5 mg DAILY PO 07/21/25 10:00 07/21/25 09:38 Aspirin 81 mg DAILY PO 07/21/25 10:00 07/21/25 09:39 Ondansetron HCl (Zofran) 4 mg Q4HP PRN IV NAUSEA / VOMITING 07/20/25 21:45 Acetaminophen (Tylenol Tablet) 650 mg Q6HP PRN PO PAIN SCALE 1-3 OR TEMP>100.4 07/20/25 21:45 Gabapentin (Neurontin Capsule) 100 mg BID PO 07/21/25 22:00 Al Hydrox/Mg Hydrox/Simethicone (Maalox Plus) 15 ml Q8HP PRN PO FOR STOMACH DISTRESS 07/21/25 11:45 Pantoprazole Sodium (Protonix Tablet) 40 mg DAILY@0600 PO 07/22/25 06:00 Review of Systems Denies any chest pain, shortness of breath, nausea, vomiting at present Vital Signs Vital Signs Date Time Temp Pulse Resp B/P (MAP) Pulse Ox O2 Delivery O2 Flow Rate FiO2 07/21/25 09:38 125/77 07/21/25 08:30 98.2 62 18 95 98.2 07/21/25 08:00 Room Air* 0 21 Physical Exam Skin - Patients skin is warm and dry. HEENT - normocephalic, atraumatic, moist mucous membranes, no scleral icterus, no conjunctival pallor. Neck - full ROM, no LAD, no JVD Pulmonary - B/L clear breath sounds without any wheezing, rales or stridor cardiovascular - regular S1,S2 heard, peripheral pulses normal radial 2+, pedal 2+. GI - soft, nontender abdomen. no hepatospleenomegaly. Bowel sounds normoactive Neurological - Patient is A/O X 4 . Bilateral upper extremity strength 5/5, bilateral lower extremity strength 5/5, no facial droop, normal speech, no tremor, no sensory deficiets. Labs/Diagnostic Data Labs Test 07/21/25 05:30 07/20/25 20:34 07/20/25 17:08 Range/Units Sodium Level 144 136-145 mmol/L Potassium Level 4.0 3.5-5.1 mmol/L Chloride Level 105 98-107 mmol/L Carbon Dioxide Level 30 20-31 mmol/L Anion Gap 9 5-15 Blood Urea Nitrogen 9 9-23 mg/dL Creatinine 0.76 0.700-1.30 mg/dL Glomerular Filtration Rate Calc 99 >90 mL/min BUN/Creatinine Ratio 11.8 10.0-20.0 Serum Glucose 89 74-106 mg/dL Calcium Level 8.9 8.7-10.4 mg/dL Troponin I High Sensitivity 76 *H </=54 ng/L Triglycerides Level 123 < 150 mg/dL Cholesterol Level 130 < 200 mg/dL LDL Cholesterol 68 < 100 mg/dL HDL Cholesterol 47 40-59 mg/dL Thyroid Stimulating Hormone (TSH) 3.35 0.55-4.78 uIU/mL White Blood Count 5.5 4.4-10.8 10^3/uL Red Blood Count 4.78 4.5-5.90 10^6/uL Hemoglobin 15.6 13.5-17.5 g/dL Hematocrit 44.7 41.0-53.0 % Mean Corpuscular Volume 93.4 80.0-100.0 fL Mean Corpuscular Hemoglobin 32.7 H 28.0-32.0 pg Mean Corpuscular Hemoglobin Concent 35.0 32.0-36.0 g/dL Red Cell Distribution Width 13.4 11.8-14.3 % Platelet Count 258 140-450 10^3/uL Mean Platelet Volume 7.8 6.9-10.8 fL Neutrophils (%) (Auto) 59.6 37.0-80.0 % Lymphocytes (%) (Auto) 28.1 10.0-50.0 % Monocytes (%) (Auto) 6.6 0.0-12.0 % Eosinophils (%) (Auto) 4.7 0.0-7.0 % Basophils (%) (Auto) 1.0 0.0-2.0 % Neutrophils # (Auto) 3.3 1.6-8.6 10 ^3/uL Lymphocytes # (Auto) 1.6 0.4-5.4 10 ^3/uL Monocytes # (Auto) 0.4 0-1.3 10 ^3/uL Eosinophils # (Auto) 0.3 0-0.8 10 ^3/uL Basophils # (Auto) 0.1 0-0.2 10 ^3/uL Nucleated Red Blood Cells 0.1 % D-Dimer, Quantitative 0.46 0.0-0.49 mg/L FEU Total Bilirubin 0.5 0.2-1.0 mg/dL Aspartate Amino Transferase (AST) 24 13-40 U/L Alanine Aminotransferase (ALT) 34 7-40 U/L Alkaline Phosphatase 65 46-116 U/L B-Type Natriuretic Peptide 25.80 0-100 pg/mL Total Protein 6.9 5.7-8.2 g/dL Albumin 4.2 3.2-4.8 g/dL Lipase 53 12-53 U/L Assessment Acute chest pain, likely GERD ACS ruled out Hypertensive heart disease h/o dyslipidemia Plan/Recommendation - recommend PPI - continue antihypertensives no further inpatient cardiac workup required. Goals of care discussed with the patient and his at bedside for over 17 minutes. Plan discussed with Dr. Serrano Plan discussed with: Patient, Spouse NYHA Physical activity limitations: Class1(None)absent sob, Date of Service: Jul 21, 2025 Billing Provider: DEJUAN SERRANO Sr., MD Cardiology Common Codes: [id number] INP/OBS CARE (High) PRASHANTH WILCOX RESIDENT Jul 21, 2025 12:17
--- NOTE | 2025-07-21 13:01 | DVH ---
EXAM: CT LS SPINE WO CONTRAST INDICATION: Lower extremity paresethia TECHNIQUE:: Axial images of the lumbar spine have been obtained along with coronal and sagittal reformatted images. CT scans at this facility use dose modulation, iterative reconstruction, and/or weight based dosing when appropriate to reduce radiation dose to as low as reasonably achievable. COMPARISON: None FINDINGS: There is no acute displaced fracture. There are degenerative changes of the lumbar spine characterized by endplate osteophytosis and intervertebral disc space narrowing. The bones are osteopenic. There is severe dextroscoliosis. The paraspinal soft tissues are unremarkable. There is a 3.0 cm low attenuating left adrenal lesion. LEVEL BY LEVEL DISCUSSION BELOW: T12-L1: Unremarkable. L1-L2: A mild disc protrusion with associated osteophyte effaces the thecal sac. There is mild facet arthropathy. L2-L3: A broad-based disc protrusion effaces the thecal sac. There is facet arthropathy. There is borderline left neural foraminal narrowing. L3-L4: A broad-based disc protrusion effaces the thecal sac. There is facet arthropathy. There is at least moderate left and mild right neural foraminal narrowing. L4-L5: A broad-based disc protrusion effaces the thecal sac. There is facet arthropathy. There is at least mild left neural foraminal narrowing. L5-S1: There is facet arthropathy without significant spinal canal or neural foraminal stenosis. IMPRESSION: 1. No acute fracture. 2. Degenerative changes of the lumbar spine as detailed. MRI may be beneficial in further assessment as clinically indicated.
--- NOTE | 2025-07-21 18:18 | DVHPNRES ---
Progress Note Date Seen: Jul 21, 2025 Resident Creating Document: DAMIR CASTAÑEDA RESIDENT Medical Necessity Reason Pt with a Central, PICC or Fol: No Subjective Review of Systems Mr. Oconnell is a 65 year old male with prior medical history of hypothyroidism, hyperlipidemia, hypertension, and GERD, who presented to [facility] with chief complaint of chest pain and leg numbness. The patient states that for the last 3 days he has had intermittent tingling sensation affecting his right foot up to his knee which has made it uncomfortable to walk. Additionally refers pressure-like retrosternal chest pain, 8/10, without aggravating or relieving factors associated with minor shortness of breath. He denies recent trauma, back pain, dizziness, nausea, vomiting, paralysis, leg pain, fever, and palpitations. Due to persistence of symptoms presented to the emergency department for evaluation. On evaluation in the ED, patient was afebrile, normal cardiac, slightly hypertensive, saturating adequately on room air. Twelve lead EKG shows sinus rhythm with right bundle branch block and PVC. Initial labs are significant for elevated but flat trending troponins. Chest x- ray is unremarkable. ACS protocol was initiated and he was admitted for further workup and management. Prior medical history: Hypothyroidism, hyperlipidemia, hypertension, GERD Prior surgical history: Cholecystectomy, hernia repair, endoscopy, colonoscopy, right ankle surgery Allergies: Denies Social: Denies drug, alcohol, and tobacco use. Lives with his . 07/20: Patient seen at bedside. He is well, states he still has some tingling in his right foot however it has improved and currently concentrated April your his toes. Additionally states he has had decreased sensation and tingling in his toes of his right foot since in ankle surgery 2 years prior. No adverse events overnight reported. He is afebrile, normocardic, saturating adequately on room air, with blood pressure within normal range. Patient has echocardiogram from 2023, new echocardiogram has been ordered. Had a Cardiolite stress test from 2023 which was negative for ischemia, showed mildly reduced left ventricular ejection fraction in a global fashion, with a low risk study. We have ordered lumbar CT for evaluation of right foot tingling. Review of Systems: Constitutional: Denies weight loss, fever and chills. HEENT: Denies changes in vision and hearing. Respiratory: Denies shortness of breath and cough Cardiovascular: Denies chest discomfort or palpitations GI: Denies abdominal distention, abdominal pain, diarrhea : Denies dysuria and urinary frequency. Musculoskeletal: denies Skin: Denies rash and pruritus. Neurological: refers tingling in right foot, denies dizziness headache vision or hearing problems Objective vital signs Vital Sign Date Time Temp Pulse Resp B/P (MAP) Pulse Ox O2 Delivery O2 Flow Rate FiO2 07/21/25 16:55 98.0 98.0 07/21/25 14:30 69 18 94 07/21/25 13:30 111/74 (86) 07/21/25 08:00 Room Air* 0 21 Total Intake and Output 07/20/25 07/20/25 07/21/25 15:00 23:00 07:00 Intake Total 300 ml Balance 300 ml medications Current Medications Medications Dose Ordered Sig/Boom Route Start Time Stop Time Status Last Admin Dose Admin Atorvastatin Calcium 20 mg HS PO 07/20/25 22:00 07/20/25 22:16 20 MG Levothyroxine Sodium 75 mcg QAM@0600 PO 07/21/25 06:00 07/21/25 05:15 75 MCG Benazepril HCl 5 mg DAILY PO 07/21/25 10:00 07/21/25 09:38 5 MG Aspirin 81 mg DAILY PO 07/21/25 10:00 07/21/25 09:39 81 MG Ondansetron HCl 4 mg Q4HP PRN IV 07/20/25 21:45 Acetaminophen 650 mg Q6HP PRN PO 07/20/25 21:45 Gabapentin 100 mg BID PO 07/21/25 22:00 Al Hydrox/Mg Hydrox/Simethicone 15 ml Q8HP PRN PO 07/21/25 11:45 Pantoprazole Sodium 40 mg DAILY@0600 PO 07/22/25 06:00 Examination General: The patient alert and oriented in person place and time. Patient following commands HEENT: Normocephalic, atraumatic, normal reactive pupils, EOM intact, pink conjunctiva, pink moist mucous membrane Respiratory/pulmonary: Bilateral chest expansion, pain on palpation of right pectoral region we are right nipple, clear lungs bilaterally, vesicular murmurs present in almost all lung smith, no associated crackles or wheezes. Cardiovascular: Normal RRR, normal S1 and S2, no murmurs Abdomen: Abdomen nondistended, normal bowel sounds, soft, there is no pain to palpation in any of the abdominal quadrants, no palpable masses. Extremities: No deformities, there is no peripheral edema present at the lower extremities, normal pulses Skin: No rashes or pruritus, there is no sacral edema present at this time. Neurological: Intact cranial nerves with no focal neurologic deficits, no pain on straight leg test, sensation is intact, strength is intact laboratory and microbiology Laboratory Tests 07/21/25 05:30 07/20/25 17:08 Test 07/21/25 05:30 Range/Units Serum Glucose 89 74-106 mg/dL Problem List/Assessment/Plan Problem List/Assessment/Plan Chest pain rule out ACS - EKG: Sinus rhythm with right bundle branch block and CBC - Troponins elevated but flat trending - Pending read of echocardiogram - Cardiology has been consulted - Aspirin 325 mg p.o. once - Aspirin 81 mg p.o. daily - Lipitor 20 mg p.o. HS GERD - Maalox 15 mL he 8 hours PO prn next - Protonix 40 mg p.o. daily Possible post herpetic neuralgia - Gabapentin 100 mg p.o. b.i.d. Paresthesia of the right foot - L-spine CT ordered Hypothyroidism - Level thyroxine 75 mcg q.a.m. Hypertension - Benazepril 10 mg p.o. daily Morbid obesity, BMI 35.6 kg/m2 Nutrition: Cardiac GI prophylaxis: Protonix 40 mg p.o. daily DVT prophylaxis: Not indicated Goals of care discussed with the patient at bedside for over 27. Full code. Case discussed with Dr. Braswell Plan discussed with: Patient, Spouse, Other (Nurse) My Orders My Orders Orders - DAMIR CASTAÑEDA RESIDENT Procedure Category Date Status Time Ls Spine Wo Contrast CT 07/21/25 Resulted 11:38 Gabapentin Capsule PHA 07/21/25 In Process (Neurontin Capsule) 11:45 Gabapentin Capsule PHA 07/21/25 In Process (Neurontin Capsule) 22:00 Alum & Mag PHA 07/21/25 In Process Hydrox-Simethicone 11:45 Pantoprazole Tablet PHA 07/22/25 In Process (Protonix Tablet) 06:00 Visit Coding STANDARD RES Billing Provider: MYNOR BRASWELL MD Date of Service if different f: Jul 21, 2025 Common Visit Codes: [id number] INP/OBS CARE(MOD) DAMIR CASTAÑEDA RESIDENT Jul 21, 2025 18:18
[2025-07-21] MEDS: GABAPENTIN 100 MG CAP PO SCH (22:56)
[2025-07-22 01:00] VITALS: BP 113/75; PULSE 67; RESP 18; TEMP 97.9; O2SAT 96
[2025-07-22 05:00] VITALS: BP 102/66; PULSE 71; RESP 17; TEMP 97.9; O2SAT 95
[2025-07-22] MEDS: PANTOPRAZOLE 40 MG TAB PO SCH (06:24)
[2025-07-22 07:10] LABS: Hematocrit 43.5 % (41.0-53.0); Hemoglobin 15.5 g/dL (13.5-17.5); Mean Corpuscular Hemoglobin 32.9 pg (28.0-32.0); Mean Corpuscular Volume 92.2 fL (80.0-100.0); Nucleated Red Blood Cells % 0.3 %
[2025-07-22 07:17] LABS: Anion Gap 8 (5-15); Calcium 9.2 mg/dL (8.7-10.4); Chloride 102 mmol/L (98-107); Potassium 4.4 mmol/L (3.5-5.1); Sodium 143 mmol/L (136-145)
[2025-07-22 07:20] LABS: Carbon Dioxide 33 mmol/L (20-31)
[2025-07-22 07:23] LABS: BUN/Creatinine Ratio 10.3 (10.0-20.0); Blood Urea Nitrogen 10 mg/dL (9-23); Glucose 92 mg/dL (74-106)
[2025-07-22 09:30] VITALS: BP 125/70; PULSE 67; RESP 19; TEMP 97.9; O2SAT 96
[2025-07-22] MEDS: BENAZEPRIL HCL 10 MG TAB PO SCH (09:38)
[2025-07-22] MEDS ORDERED: GABA-1308 PO (11:47)
[2025-07-22] MEDS ORDERED: SUCR1TAB31 PO (11:47)
[2025-07-22] MEDS ORDERED: PANT40TA2 PO (11:47)
[2025-07-22 12:37] VITALS: BP 124/76; PULSE 69; RESP 17; TEMP 97.7; O2SAT 96
--- NOTE | 2025-07-22 19:00 | DVHDSRES ---
Discharge Summary Date of Admission Resident Creating Document: DAMIR CASTAÑEDA RESIDENT Jul 20, 2025 at 19:49 Date of Discharge: Jul 22, 2025 Admitting Diagnosis Chest Pain Wounds: No wounds Labs/Diagnostic Data: Laboratory Results Test 07/22/25 06:30 07/20/25 20:34 07/20/25 17:08 White Blood Count 5.1 10^3/uL (4.4-10.8) Red Blood Count 4.71 10^6/uL (4.5-5.90) Hemoglobin 15.5 g/dL (13.5-17.5) Hematocrit 43.5 % (41.0-53.0) Mean Corpuscular Volume 92.2 fL (80.0-100.0) Mean Corpuscular Hemoglobin 32.9 pg (28.0-32.0) Mean Corpuscular Hemoglobin Concent 35.7 g/dL (32.0-36.0) Red Cell Distribution Width 13.2 % (11.8-14.3) Platelet Count 251 10^3/uL (140-450) Mean Platelet Volume 8.0 fL (6.9-10.8) Neutrophils (%) (Auto) 50.2 % (37.0-80.0) Lymphocytes (%) (Auto) 35.6 % (10.0-50.0) Monocytes (%) (Auto) 8.5 % (0.0-12.0) Eosinophils (%) (Auto) 4.8 % (0.0-7.0) Basophils (%) (Auto) 0.9 % (0.0-2.0) Neutrophils # (Auto) 2.5 10 ^3/uL (1.6-8.6) Lymphocytes # (Auto) 1.8 10 ^3/uL (0.4-5.4) Monocytes # (Auto) 0.4 10 ^3/uL (0-1.3) Eosinophils # (Auto) 0.2 10 ^3/uL (0-0.8) Basophils # (Auto) 0 10 ^3/uL (0-0.2) Nucleated Red Blood Cells 0.3 % Sodium Level 143 mmol/L (136-145) Potassium Level 4.4 mmol/L (3.5-5.1) Chloride Level 102 mmol/L (98-107) Carbon Dioxide Level 33 mmol/L (20-31) Anion Gap 8 (5-15) Blood Urea Nitrogen 10 mg/dL (9-23) Creatinine 0.97 mg/dL (0.700-1.30) Glomerular Filtration Rate Calc 86 mL/min (>90) BUN/Creatinine Ratio 10.3 (10.0-20.0) Serum Glucose 92 mg/dL (74-106) Calcium Level 9.2 mg/dL (8.7-10.4) Troponin I High Sensitivity 76 ng/L (</=54) Triglycerides Level 123 mg/dL (< 150) Cholesterol Level 130 mg/dL (< 200) LDL Cholesterol 68 mg/dL (< 100) HDL Cholesterol 47 mg/dL (40-59) Thyroid Stimulating Hormone (TSH) 3.35 uIU/mL (0.55-4.78) D-Dimer, Quantitative 0.46 mg/L FEU (0.0-0.49) Total Bilirubin 0.5 mg/dL (0.2-1.0) Aspartate Amino Transferase (AST) 24 U/L (13-40) Alanine Aminotransferase (ALT) 34 U/L (7-40) Alkaline Phosphatase 65 U/L (46-116) B-Type Natriuretic Peptide 25.80 pg/mL (0-100) Total Protein 6.9 g/dL (5.7-8.2) Albumin 4.2 g/dL (3.2-4.8) Lipase 53 U/L (12-53) Other Laboratory Tests 07/22/25 06:30 Brief Hx & Hospital Course: Mr. Oconnell is a 65 year old male with prior medical history of hypothyroidism, hyperlipidemia, hypertension, and GERD, who presented to [facility] with chief complaint of chest pain and leg numbness. The patient states that for the last 3 days he has had intermittent tingling sensation affecting his right foot up to his knee which has made it uncomfortable to walk. Additionally refers pressure-like retrosternal chest pain, 8/10, without aggravating or relieving factors associated with minor shortness of breath. He denies recent trauma, back pain, dizziness, nausea, vomiting, paralysis, leg pain, fever, and palpitations. Due to persistence of symptoms presented to the emergency department for evaluation. On evaluation in the ED, patient was afebrile, normal cardiac, slightly hypertensive, saturating adequately on room air. Twelve lead EKG shows sinus rhythm with right bundle branch block and PVC. Initial labs are significant for elevated but flat trending troponins. Chest x- ray is unremarkable. ACS protocol was initiated and he was admitted for further workup and management. On further evaluation, the patient states he has had tingling and loss of sensation in his right foot since a previous ankle surgery. Review of record, it was found that the patient had a Cardiolite stress test performed in 2023 which was negative for ischemia, showed mildly reduced left ejection fraction in a bolus fashion, and was a low risk study. Repeat echocardiogram was performed. The patient was evaluated by Cardiology who recommended use of PPIs. Protonix and Maalox, with pain relief achieved. CT lumbar spine is positive for degenerative changes in the lumbar spine. On evaluation today, patient states he is well, pain has improved. He is afebrile, normocardic, Blood pressure within normal range, saturating adequately on room air. Follow up lab are within normal range. He is considered stable for discharge home with prescription for Protonix and Carafate. All medications, indications, treatment regimen, and potential side effects have been explained to the patient. All questions and concerns have been addressed. The patient states he understands and agrees. General: The patient alert and oriented in person place and time. Patient following commands HEENT: Normocephalic, atraumatic, normal reactive pupils, EOM intact, pink conjunctiva, pink moist mucous membrane Respiratory/pulmonary: Bilateral chest expansion, pain on palpation of right pectoral region we are right nipple, clear lungs bilaterally, vesicular murmurs present in almost all lung smith, no associated crackles or wheezes. Cardiovascular: Normal RRR, normal S1 and S2, no murmurs Abdomen: Abdomen nondistended, normal bowel sounds, soft, there is no pain to palpation in any of the abdominal quadrants, no palpable masses. Extremities: No deformities, there is no peripheral edema present at the lower extremities, normal pulses Skin: No rashes or pruritus, there is no sacral edema present at this time. Neurological: Intact cranial nerves with no focal neurologic deficits, no pain on straight leg test, sensation is intact, strength is intact Goals of care and discharge planning discussed with the patient for over 25 minutes. Case discussed with Dr. Braswell Consults/Reason for consult Cardiology was consulted due to possible ACS Operations or Procedures EXAM: XY CHEST PORTABLE HISTORY: cp/sob TECHNIQUE: 1 view of the chest COMPARISON: CT CT ANGIO CHEST CONTRAST on DOS: 09/28/23 FINDINGS/IMPRESSION: LUNGS: No pleural effusion, consolidation, or pneumothorax. MEDIASTINUM: Unremarkable. BONES: No acute osseous abnormality. OTHER: None. EXAM: CT LS SPINE WO CONTRAST INDICATION: Lower extremity paresethia TECHNIQUE:: Axial images of the lumbar spine have been obtained along with coronal and sagittal reformatted images. CT scans at this facility use dose modulation, iterative reconstruction, and/or weight based dosing when appropriate to reduce radiation dose to as low as reasonably achievable. COMPARISON: None FINDINGS: There is no acute displaced fracture. There are degenerative changes of the lumbar spine characterized by endplate osteophytosis and intervertebral disc space narrowing. The bones are osteopenic. There is severe dextroscoliosis. The paraspinal soft tissues are unremarkable. There is a 3.0 cm low attenuating left adrenal lesion. LEVEL BY LEVEL DISCUSSION BELOW: T12-L1: Unremarkable. L1-L2: A mild disc protrusion with associated osteophyte effaces the thecal sac. There is mild facet arthropathy. L2-L3: A broad-based disc protrusion effaces the thecal sac. There is facet arthropathy. There is borderline left neural foraminal narrowing. L3-L4: A broad-based disc protrusion effaces the thecal sac. There is facet arthropathy. There is at least moderate left and mild right neural foraminal narrowing. L4-L5: A broad-based disc protrusion effaces the thecal sac. There is facet arthropathy. There is at least mild left neural foraminal narrowing. L5-S1: There is facet arthropathy without significant spinal canal or neural foraminal stenosis. IMPRESSION: 1. No acute fracture. 2. Degenerative changes of the lumbar spine as detailed. MRI may be beneficial in further assessment as clinically indicated. Condition at Discharge: Stable Final Diagnosis/Problems List Acute chest pain, likely due to GERD ACS ruled out Possible post herpetic neuralgia Paresthesia of the right foot likely chronic Degenerative changes of lumbar spine Hypothyroidism Hypertension Morbid obesity, BMI 35.6 kg/m2 Discharge Disposition: Home Discharge Instruct/Medications Diet: Cardiac 2g Na,low cholest Activity: No Restrictions, As Tolerated Follow Up/Referral: Follow up with PCP in 1 week Follow up in discharge clinic next week Medications: Per EMR Scheduled Atorvastatin Calcium (Atorvastatin Calcium), 1 TAB PO DAILY, (Reported) Benazepril Hcl (Benazepril Hcl), 1 TAB PO DAILY, (Reported) Gabapentin (Gabapentin), 1 CAP PO BID Levothyroxine Sodium (Levothyroxine Sodium), 1 TAB PO DAILY, (Reported) Pantoprazole Sodium Sesquihydr (Protonix), 40 MG PO DAILY Sucralfate (Carafate), 1 GM PO BID Discharge Statement: "Patient was advised to return to the ER or call 911 if any headaches, dizziness, shortness of breath, chest pain, abdominal pain, bleeding, fevers, or worsening of medical condition. Patient was counseled about treatment plan, medications, possible side effects, patientverbalized understanding. All questions were answered to the best of my ability. This discharge took greater then 30 minutes in planning, reviewing documentation, counseling the patient, and discussing with other team members." ASSESSMENT ASSESSMENT Assessment Acute chest pain, likely due to GERD Visit Coding STANDARD RES Billing Provider: MYNOR BRASWELL MD Date of Service if different f: Jul 22, 2025 Common Visit Codes: [id number] INP/OBS CARE(MOD) DAMIR CASTAÑEDA RESIDENT Jul 22, 2025 19:00
--- NOTE | 2025-07-23 12:58 | DVHSR ---
APPROVED REPORT EXAM: Two-dimensional and M-mode echocardiogram with Doppler and color Doppler. Blood Pressure: 112/76 mmHg INDICATION Chest Pain RISK FACTORS Obesity: Height: 5'6, Weight: 220 DIMENSIONS LVDd 4.9 (3.8-5.7cm) LA (2D) 3.4 (1.9-4.0cm) Aortic Root 3.2 (2.0-3.7cm) LVDs 3.7 (2.5-4.0cm) LA (MM) (1.9-4.0cm) Aortic Cusp Exc 1.9 (1.5-2.0cm) EF (%) 50.0 (55-70%) Rt. Atrium 4.9 (1.9-4.0cm) Asc. Aorta cm IVSd 1.0 (0.7-1.1cm) RV (D) 5.2 (1.8-2.4cm) PWd 0.8 (0.7-1.1cm) Mitral Valve Mitral Mitral Stenosis E wave 0.50m/s MV Mean GR. mmHg A wave 0.72m/s MV Peak GR. 57mmHg E/A ratio 0.7 2D MVA cm2 DECEL Time 318ms PRESS 1/2 Time ms Aortic Valve Aortic Valve Aortic Stenosis V1 0.80m/s AO Mean GR. mmHg V2 1.14m/s AO Peak GR. 5mmHg LVOT Diameter 2.3 (1.8-2.4cm) Doppler RODO 2.91cm2 Pulmonic Valve V2 1.11m/s Other Information Technically limited study due to body habitus. Conclusion 1-Borderline low normal left ventricle systolic function with estimated ejection fraction 50%. 2-Dilated right ventricle with normal systolic function 3-Right atrial dilatation 4-Trace mitral and tricuspid regurgitation
== END 2025-07-22 13:32 | disposition home or self-care (01) | DRG 392 ==
LOC: ER 16:38 → OVERFLOW 19:49 → TELE-WESTW 22:00 → WEST WING 07-22 08:00
PROVIDERS: ADMIT Student in an Organized Health Care Education/Training Program; ATTEND Internal Medicine
DX: K21.9 Gastro-esophageal reflux disease without esophagitis (principal); B02.29 Other postherpetic nervous system involvement; E03.9 Hypothyroidism, unspecified; E66.01 Morbid (severe) obesity due to excess calories; I11.9 Hypertensive heart disease without heart failure; E78.5 Hyperlipidemia, unspecified; M51.369 Other intervertebral disc degeneration, lumbar region without mention of lumbar back pain or lower extremity pain; Z68.35 Body mass index [BMI] 35.0-35.9, adult; K44.9 Diaphragmatic hernia without obstruction or gangrene; Z87.19 Personal history of other diseases of the digestive system
CPT/HCPCS: 36415; 71045; 72131; 80048; 80053; 80061; 83690; 83880; 84443; 84484; 85025; 85379; 93005; 93306; G0378